=== PATIENT | female | born 1990 | race Caucasian/White ===

== ENCOUNTER 2018-03-14 23:10 | Emergency (ER) | payer OTHER ==
[~2018-03-14 23:10] MED LIST: ATIVAN1 MG PO; BENADRYL25 MG PO; BLM PO; BROMFED DM COU118 ML PO; MOTRIN800 MG PO; NORETHINDRONE AC5 MG PO; PERCOCET 325 MG1 TA2 PO; PREDNISONE20 M1 PO; TORADOL10 MG PO; VICODIN 300 MG-1 TAB PO; ZOFRAN 4 MG TABL4 MG PO; ZOFRAN ODT8 MG PO
--- NOTE | 2018-03-14 23:12 | ED PSYCHIATRIC COMPLAINT ---
History of Present Illness General Chief Complaint: Psychiatric Related Complaint Stated Complaint: BIBA +SI ON PEER, ANXIOUS Source: patient, EMS Exam Limitations: no limitations Vital Signs & Intake/Output Vital Signs & Intake/Output Vital Signs Date Time Temp Pulse Resp B/P B/P Pulse O2 O2 Flow FiO2 Mean Ox Delivery Rate 03/15 924 98.3 98 18 97/60 100 03/15 0722 98 Room Air 03/15 0720 98.0 90 16 104/66 98 Room Air 03/15 0641 98.7 90 18 100/60 99 Room Air 03/15 0449 98.6 89 18 102/76 98 Room Air 03/15 0200 90 18 92/62 99 Room Air 03/15 0112 100 Room Air 03/15 0052 98.7 99 16 88/46 100 Room Air Allergies Coded Allergies: iodine (UNKNOWN 03/14/18) Triage Nurses Notes Reviewed? yes Onset: Gradual Duration: hour(s): Timing: recent history Severity: moderate Associated Symptoms: anxiety, suicidal ideation Patient currently breastfeeds: No HPI: 27 YO WOMAN on police PEER for suicidality presents after argument with boyfriend. She stated that she was going to kill herself by driving [place] car on the highway. She also was in possession of a knife. She arrives to ED, tearful, upset, anxious. (Rosendo RODRIGUEZ,Mateus Huggins) Reconcile Medications Buspirone HCl 15 MG TABLET 1 TAB PO TID anxiety (Reported) diphenhydrAMINE HCl (Benadryl) 25 MG CAPSULE 1 CAP PO BID ALLERGIC REACTION Ibuprofen (Motrin) 800 MG TAB 1 TAB PO Q8H PRN PAIN Lorazepam (Ativan) 1 MG TAB 1 TAB PO Q8H PRN ANXIETY Norethindrone Acetate 5 MG TABLET 1 TAB PO DAILY CONTROL (Reported) Ondansetron (Zofran Odt) 8 MG ODT 1 TAB PO Q8 PRN nausea place on top of the tongue where it will dissolve, then swallow OXYCODONE HCL/ACETAMINOPHEN (Percocet 5-325 MG Tablet) 325 MG/5 MG TAB 1 TAB PO Q4-6 PRN PRN PAIN Prednisone 20 MG TABLET 2 TAB PO DAILY allergic reaction (Mey RODRIGUEZ,Marcel Rosales) Past History Travel History Traveled to [place] past 21 day No Medical History Any Pertinent Medical History? see below for history Neurological: NONE EENT: NONE Cardiovascular: NONE Respiratory: NONE Gastrointestinal: NONE Hepatic: NONE Renal: NONE Musculoskeletal: NONE Psychiatric: NONE Endocrine: NONE Cancer(s): NONE Other Medical Hx: Familial Mediterranean fever Surgical History Surgical History: non-contributory Psychosocial History What is your primary language Guamanian Family History Hx Contributory? No (Rosendo RODRIGUEZ,Mateus Huggins) Review of Systems Review of Systems Constitutional: Reports: no symptoms. EENTM: Reports: no symptoms. Respiratory: Reports: no symptoms. Cardiovascular: Reports: no symptoms. GI: Reports: no symptoms. Genitourinary: Reports: no symptoms. Musculoskeletal: Reports: no symptoms. Skin: Reports: no symptoms. Neurological/Psychological: Reports: no symptoms. Hematologic/Endocrine: Reports: no symptoms. Immunologic/Allergic: Reports: no symptoms. All Other Systems: Reviewed and Negative (Rosendo RODRIGUEZ,Mateus Huggins) Physical Exam Physical Exam General Appearance: well developed/nourished, mild distress Head: atraumatic Eyes: Bilateral: normal appearance. Ears, Nose, Throat: normal pharynx, normal ENT inspection, hearing grossly normal Neck: normal inspection, supple Respiratory: normal breath sounds Cardiovascular: regular rate/rhythm Gastrointestinal: soft, non-tender Extremities: normal range of motion Neurological/Psychiatric: no motor/sensory deficits, agitated, anxious, anxious, agitated, crying Appearance/Memory/Insight: impaired insight Thoughts/Hallucinations: no apparent hallucination Skin: intact, normal color, warm/dry SAD PERSONS SAD PERSONS Response Value Excessive Ethanol/Drug Use? yes 1 Rational Thinking Loss? yes 2 Social Support? has support 0 Total 3 SAD PERSONS Done? yes (Rosendo RODRIGUEZ,Mateus Huggins) Progress Differential Diagnosis: drug intoxication, anxiety, depression Plan of Care: Orders Procedure Date/time Status Regular Diet 03/15 B Active Continuous Observation Monitor 03/14 2312 Active URINE DRUG SCREEN FOR ER ONLY 03/14 2312 Complete HUMAN BETA HCG SCREEN 03/14 2312 Complete ETHANOL 03/14 2312 Complete COMPREHENSIVE METABOLIC PANEL 03/14 2312 Complete CBC WITHOUT DIFFERENTIAL 03/14 2312 Complete ED CRISIS PSYCH CONSULT 03/14 2312 Active Current Medications Sig/Jyothi Start time Last Medication Dose Stop Time Status Admin Buspirone HCl 15 MG BID 03/14 2316 UNVr 03/15 (Buspar) 0859 Lorazepam 1 MG Q6P PRN 09/16 2315 AC (Ativan) Laboratory Tests 03/14/18 2338: Anion Gap 11, Estimated GFR > 60, BUN/Creatinine Ratio 11.7, Glucose 93, Calcium 9.3, Total Bilirubin 0.2, AST 17, ALT 14, Alkaline Phosphatase 56, Total Protein 7.3, Albumin 4.5, Globulin 2.8, Albumin/Globulin Ratio 1.6, Total Beta HCG NEGATIVE, CBC w Diff NO MAN DIFF REQ, RBC 4.94, MCV 88.0, MCH 29.9, MCHC 34.0, RDW 13.0, MPV 8.3, Gran % 67.6, Lymphocytes % 24.3, Monocytes % 5.6, Eosinophils % 2.1, Basophils % 0.4, Absolute Granulocytes 8.6 H, Absolute Lymphocytes 3.1, Absolute Monocytes 0.7 H, Absolute Eosinophils 0.3, Absolute Basophils 0, Serum Alcohol 174.0 03/14/18 2334: Urine Opiates Screen < 100, Methadone Screen < 40, Barbiturate Screen < 60, Ur Phencyclidine Scrn < 6.00, Amphetamines Screen 221, U Benzodiazepines Scrn < 85, Urine Cocaine Screen < 50, Urine Cannabis Screen > 80.00 H (Rosendo RODRIGUEZ,Mateus Huggins) Departure Departure Condition: Stable Referrals: Carla Riley DO (PCP/Family) Departure Forms: Customer Survey General Discharge Information Comments pt to be signed out to dr. turcios, 03/15/18, 7am. (Rosendo RODRIGUEZ,Mateus Huggins) Departure Disposition: HOME OR SELF CARE Clinical Impression Primary Impression: Anxiety Secondary Impressions: Adjustment disorder Qualifiers: Adjustment disorder type: unspecified type Qualified Code: F43.20 - Adjustment disorder, unspecified Alcohol abuse Marijuana abuse Additional Instructions: Follow-up with your appointment March 30 with [facility] outpatient [facility] at 1: 15 PM. (Mey RODRIGUEZ,Marcel Rosales)
[2018-03-14 23:47] LABS: ABSOLUTE BASOPHIL COUNT 0 /CUMM (0.0-0.2); ABSOLUTE EOSINOPHIL COUNT 0.3 /CUMM (0.0-0.7); ABSOLUTE GRANULOCYTE CT 8.6 /CUMM (1.4-6.5); ABSOLUTE LYMPH COUNT 3.1 /CUMM (1.2-3.4); ABSOLUTE MONOCYTE COUNT 0.7 /CUMM (0.10-0.60); BASOPHIL % 0.4 % (0.0-2.0); EOSINOPHIL % 2.1 % (0-5); GRANULOCYTE % 67.6 % (42.2-75.2); HEMATOCRIT 43.5 % (37-47); MEAN CORPUSCULAR HGB 29.9 PG (27.0-31.0); MEAN PLATELET VOLUME 8.3 FL (7.4-10.4); PLATELET COUNT 308 /CUMM (130-400); RED BLOOD CELL CT 4.94 /CUMM (4.20-5.40); WHITE BLOOD CELL COUNT 12.7 /CUMM (4.8-10.8)
[2018-03-15] MEDS ORDERED: BUSPIRONE HCL15 M1 PO (07:19)
[2018-03-15 10:23] VITALS: BP 102/70
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
== END 2018-03-15 10:25 ==
LOC: ERH 23:10
PROVIDERS: Pediatrics
DX: F41.9 Anxiety disorder, unspecified (principal); F43.20 Adjustment disorder, unspecified; F10.10 Alcohol abuse, uncomplicated; F12.10 Cannabis abuse, uncomplicated
CPT/HCPCS: 80307; 96360; 96361; 96372; G0463; G0480